=== PATIENT | female | born 1955 | race Caucasian/White ===

== ENCOUNTER → 2021-04-08 13:26 | Outpatient (BNVA) | payer OTHER, MEDICAID, SELFPAY | PROVIDERS: Visit Provider Specialist | DX: G40.209 Localization-related (focal) (partial) symptomatic epilepsy and epileptic syndromes with complex partial seizures, not intractable, without status epilepticus (principal); Z87.891 Personal history of nicotine dependence | CPT/HCPCS: 99204 ==

== ENCOUNTER 2021-04-18 08:34 | Outpatient (CLI) | payer OTHER, MEDICAID, SELFPAY ==
--- NOTE | 2021-04-18 08:42 | CT_ITS ---
WS: [id number] CT HEAD TECHNIQUE: Noncontrast and contrast-enhanced CT of the head. CLINICAL INFORMATION: R56.9 - Unspecified convulsions COMPARISON: None. DLP: 1829.[address] scans at [facility] use at least one of these dose optimization techniques: automat ed exposure control; mA and/or kV adjustment per patient size (includes targeted exams where dose is matched to clinical indication); or iterative reconstruction. FINDINGS: No evidence of intracranial hemorrhage or mass effect. Ventricular system and basal cisterns are kent nt. Mild small vessel changes. Moderate parenchymal volume loss. Chronic lacunar infarct right caudat e. Opacification of the left frontal ethmoidal recess. Mastoid air cells well aerated. No abnormal in tracranial enhancement. CT/CT head wo/w con [id number] IMPRESSION: 1. No evidence of intracranial hemorrhage or mass effect. 2. Mild small vessel changes moderate parenchymal volume loss. 3. No abnormal intracranial enhancement. 4. Opacification the left frontal ethmoidal recess. Mastoid air cells are well aerated. 5. No acute appearing intracranial findings.
[2021-04-18 09:34] LABS: Blood Urea Nitrogen 19 mg/dL (8-23); Glomerular Filtration Rate 62.6 mL/min (90-130)
[2021-04-18] MEDS: iohexol 300 mg/mL 100 mL Btl IV (09:43)
== END 2021-04-18 08:35 | disposition home or self-care (01) ==
LOC: WPI 08:36
PROVIDERS: PCP Emergency Medicine; Visit Provider Specialist
DX: R56.9 Unspecified convulsions (principal)
CPT/HCPCS: 70470; 82565; 84520

== ENCOUNTER → 2021-08-19 08:27 | Outpatient (BNVA) | payer MEDICARE, MEDICAID, SELFPAY | PROVIDERS: PCP Emergency Medicine; Visit Provider Specialist | DX: G40.209 Localization-related (focal) (partial) symptomatic epilepsy and epileptic syndromes with complex partial seizures, not intractable, without status epilepticus (principal); Z87.891 Personal history of nicotine dependence | CPT/HCPCS: 95816 ==